=== PATIENT | male | born 1980 | race Caucasian/White ===

== ENCOUNTER → 2017-07-02 06:57 | Outpatient (CLI) | payer BC, SELFPAY ==
[2017-07-02 07:32] LABS: Basophils % 0.4 % (0.1-2.0); Eosinophils # 0.1 K/mm3 (0.0-0.4); Eosinophils % 0.9 % (0.1-12.0); Hematocrit 43.1 % (42.0-52.0); Hemoglobin 14.9 g/dL (14.1-18.0); Lymphocytes # 1.9 K/mm3 (0.7-4.5); Mean Corpuscular HGB Conc 34.5 g/dL (31.8-35.4); Mean Corpuscular Hemoglobin 30.7 pg (27.0-31.2); Mean Platelet Volume 7.6 fl (7.4-10.4); Monocytes # 0.3 K/mm3 (0.1-1.0); Monocytes % 3.8 % (1.7-9.3); Neutrophils # 5.3 K/mm3 (1.8-7.8); Neutrophils % 69.8 % (37.0-80.0); Platelet Count 293 K/mm3 (142-424); Red Blood Count 4.85 M/mm3 (4.60-6.20); White Blood Count 7.5 K/mm3 (4.8-10.8)
[2017-07-03 17:16] LABS: Testosterone,Total 278 ng/dL (264-916)
[2017-07-05 06:29] LABS: Vitamin D 25 Hydroxy 12.2 ng/mL (30.0-100.0)
== END ==
PROVIDERS: PCP Internal Medicine Adolescent Medicine; Visit Provider Internal Medicine Adolescent Medicine
DX: E55.9 Vitamin D deficiency, unspecified (principal); E29.1 Testicular hypofunction
CPT/HCPCS: 36415; 82652; 84403; 85025

== ENCOUNTER → 2018-01-16 12:13 | Outpatient (CLI) | payer BC, SELFPAY ==
[2018-01-16 12:17] LABS: Microscopic, Urine URINE MICROSCOPIC (MICROSCOPIC)
--- NOTE | 2018-01-16 12:34 | CT_ITS ---
CT abdomen pelvis wo/w con CLINICAL INDICATION: ITS.REASON: LT LATERAL ABD PAIN..FEVER..CHILLS ORDERING PHYSICIAN: Tiffany Jade PATIENT AGE: 37 years COMPARISON: None TECHNIQUE: Axial images obtained with sagittal and coronal reformats. All CT scans at the facility use one or more dose reduction, viz: automated exposure control, ma/kV adjustment per patient size (including targeted exams where dose is matched to indication, i.e. head), or iterative reconstruction technique. PROCEDURE: Oral Contrast: None IV Contrast: 75 mL's of Isovue-370. FINDINGS: Lung bases are clear. There is mild diffuse fatty liver involvement. No focal liver lesion is evident. There has been prior cholecystectomy. No biliary dilatation. The spleen, adrenal glands, and pancreas have an unremarkable appearance. No renal or ureteral calculi or hydronephrosis. Unremarkable appendix. There is diverticulosis of the descending and sigmoid colon. There is mild stranding of the pericolic fat in the left mid abdominal region adjacent to a diverticulum consistent with acute diverticulitis. There is mild thickening of the left paracolic gutter. No abscess or perforation is evident. No pelvic fluid collections or mass apparent. No acute bony anomalies. IMPRESSION: Acute noncomplicated diverticulitis of the descending colon
[2018-01-16 12:40] LABS: Basophils % 0.3 % (0.1-2.0); Eosinophils # 0.1 K/mm3 (0.0-0.4); Eosinophils % 0.5 % (0.1-12.0); Hematocrit 48.6 % (42.0-52.0); Hemoglobin 16.3 g/dL (14.1-18.0); Lymphocytes # 1.8 K/mm3 (0.7-4.5); Lymphocytes % 14.8 K/mm3 (10-50); Mean Corpuscular HGB Conc 33.5 g/dL (31.8-35.4); Mean Corpuscular Hemoglobin 30.4 pg (27.0-31.2); Mean Corpuscular Volume 90.8 fl (80-94); Mean Platelet Volume 7.8 fl (7.4-10.4); Monocytes # 0.7 K/mm3 (0.1-1.0); Monocytes % 5.5 % (1.7-9.3); Neutrophils # 9.4 K/mm3 (1.8-7.8); Neutrophils % 78.9 % (37.0-80.0); Platelet Count 288 K/mm3 (142-424); Red Blood Count 5.36 M/mm3 (4.60-6.20); Red Cell Distribution Width 13.9 % (11.5-17.5); White Blood Count 11.9 K/mm3 (4.8-10.8)
[2018-01-16 12:42] LABS: Appearance,Urine CLEAR (Clear); Bilirubin,Urine Negative (Negative); Blood, Urine TRACE-I (Negative); Color,Urine YELLOW (Yellow); Glucose,Urine (UA) 3+ (Negative); Ketones,Urine Negative (Negative); Leukocyte Esterase,Urine Negative (Negative); Nitrate,Urine Negative (Negative); Protein,Urine Negative (Negative); Specific Gravity, Urine >= 1.030 (1.005-1.030); Urobilinogen,Urine 0.2 EU/dl (0.2)
[2018-01-16 13:02] LABS: Bacteria,Urine 1+ /lpf; Mucus,Urine 1+ /lpf; Squamous Epithelial Cell,Urine Occasional #/hpf (0-5); WBC,Urine Occasional #/hpf (0-3)
[2018-01-16 13:45] LABS: Alanine Aminotransferase 53 U/L (12-78); Albumin Level 3.7 gm/dL (3.4-5.0); Alkaline Phosphatase 89 U/L (46-116); Amylase 50 U/L (25-125); Anion Gap 13.3 mEq/L (5-15); Aspartate Amino Transferase 14 U/L (15-37); Bilirubin,Total 0.9 mg/dL (0.2-1.0); Blood Urea Nitrogen 10 mg/dL (7-18); Carbon Dioxide 25 mmol/L (21.0-32.0); Chloride 105 mmol/L (98-107); Creatinine,Serum 0.92 mg/dL (0.70-1.30); Estimated Glomerular Filt Rate 92 ml/min (>60); GFR (African American) 111 ML/MIN (>60); Globulin 3.8 gm/dl (1.3-3.2); Glucose 153 mg/dL (74-106); Lipase 165 u/L (73-393); Potassium 4.3 mmoL/L (3.5-5.1); Sodium 139 mmol/L (136-145); Total Protein,Serum 7.5 gm/dL (6.4-8.2)
== END ==
PROVIDERS: PCP Internal Medicine Adolescent Medicine; Visit Provider Nurse Practitioner Family
DX: R50.9 Fever, unspecified (principal); R10.9 Unspecified abdominal pain
CPT/HCPCS: 36415; 74170; 74178; 80053; 81001; 82150; 83690; 85025; Q9967

== ENCOUNTER → 2018-01-26 16:37 | Outpatient (CLI) | payer BC, SELFPAY | PROVIDERS: PCP Nurse Practitioner Family; Visit Provider Nurse Practitioner Family | DX: R00.2 Palpitations (principal) | CPT/HCPCS: 93005; 93225; 93226 ==

== ENCOUNTER → 2019-10-13 07:12 | Outpatient (CLI) | payer BC, SELFPAY ==
[2019-10-13 10:44] LABS: Hemoglobin A1C 5.5 % (4.0-6.0)
[2019-10-13 10:56] LABS: Basophils # 0.1 K/mm3 (0-0.2); Basophils % 0.9 % (0.1-2.0); Eosinophils # 0.1 K/mm3 (0.0-0.4); Eosinophils % 1.7 % (0.1-12.0); Hematocrit 50.4 % (42.0-52.0); Hemoglobin 16.9 g/dL (14.1-18.0); Mean Corpuscular HGB Conc 33.6 g/dL (31.8-35.4); Mean Corpuscular Hemoglobin 31.2 pg (27.0-31.2); Mean Corpuscular Volume 92.9 fl (80-94); Mean Platelet Volume 8.7 fl (7.4-10.4); Monocytes # 0.4 K/mm3 (0.1-1.0); Neutrophils # 4.7 K/mm3 (1.8-7.8); Neutrophils % 64.4 % (37.0-80.0); Platelet Count 294 K/mm3 (142-424); Red Blood Count 5.42 M/mm3 (4.60-6.20); Red Cell Distribution Width 13.9 % (11.5-17.5); White Blood Count 7.2 K/mm3 (4.8-10.8)
[2019-10-13 11:06] LABS: Alanine Aminotransferase 52 U/L (12-78); Albumin Level 4.6 g/dl (3.5-5.0); Albumin/Globulin Ratio 1.4 (1.1-1.8); Alkaline Phosphatase 74 U/L (38-126); Anion Gap 12.8 mEq/L (5-15); Aspartate Amino Transferase 37 U/L (17-59); Bilirubin,Total 1.1 mg/dl (0.2-1.3); Blood Urea Nitrogen 18 mg/dl (9-20); Calcium 9.7 mg/dl (8.4-10.2); Carbon Dioxide 32 mmol/L (22.0-30.0); Chloride 98 mmol/L (98-107); Chol/HDL Ratio 4.1 (1-3.5); Cholesterol 147 mg/dl (140-200); Estimated Glomerular Filt Rate 83 ml/min (>60); GFR (African American) 100 ML/MIN (>60); Globulin 3.3 g/dL (1.3-3.2); Glucose 110 mg/dl (74-100); HDL Cholesterol 36 mg/dl (40-60); Potassium 4.8 mmoL/L (3.5-5.1); Sodium 138 mmol/L (136-145); Total Protein,Serum 7.9 g/dl (6.3-8.2); Triglycerides 154 mg/dl (30-150); VLDL Cholesterol 31 mg/dL (0-40)
[2019-10-13 11:17] LABS: Direct LDL Cholesterol 107.69 mg/dL (100-129)
[2019-10-15 08:25] LABS: Vitamin D 25 Hydroxy 21.3 ng/mL (30.0-100.0)
[2019-10-19 11:17] LABS: Testosterone, Total, LC/MS 295.8 ng/dL (264.0-916.0); Testosterone,Free 6.9 pg/mL (6.8-21.5)
== END ==
PROVIDERS: Visit Provider Internal Medicine Adolescent Medicine
DX: I10 Essential (primary) hypertension; E29.1 Testicular hypofunction; Z68.38 Body mass index [BMI] 38.0-38.9, adult; E55.9 Vitamin D deficiency, unspecified
CPT/HCPCS: 36415; 80053; 80061; 82652; 83036; 84402; 84403; 85025

== ENCOUNTER → 2020-08-28 17:08 | Outpatient (CLI) | payer BC, SELFPAY | PROVIDERS: PCP Internal Medicine Adolescent Medicine; Visit Provider Internal Medicine Adolescent Medicine | DX: R00.2 Palpitations (principal) | CPT/HCPCS: 93225; 93226 ==

== ENCOUNTER → 2020-10-09 15:45 | Outpatient (CLI) | payer BC, SELFPAY ==
[2020-10-09 16:08] LABS: Basophils # 0.1 K/mm3 (0-0.2); Basophils % 0.7 % (0.1-2.0); Eosinophils # 0.1 K/mm3 (0.0-0.4); Eosinophils % 1.3 % (0.1-12.0); Hematocrit 49.3 % (42.0-52.0); Hemoglobin 16.2 g/dL (14.1-18.0); Lymphocytes # 2.2 K/mm3 (0.7-4.5); Lymphocytes % 28.5 % (10-50); Mean Corpuscular Hemoglobin 30.6 pg (27.0-31.2); Mean Corpuscular Volume 92.9 fl (80-94); Monocytes # 0.4 K/mm3 (0.1-1.0); Monocytes % 4.9 % (1.7-9.3); Neutrophils % 64.7 % (37.0-80.0); Platelet Count 280 K/mm3 (142-424); Red Cell Distribution Width 13.2 % (11.5-17.5); White Blood Count 7.8 K/mm3 (4.8-10.8)
[2020-10-09 17:07] LABS: Chloride 103 mmol/L (98-107)
[2020-10-09 17:08] LABS: Potassium 4.5 mmoL/L (3.5-5.1); Sodium 139 mmol/L (136-145)
[2020-10-09 17:10] LABS: Alanine Aminotransferase 49 U/L (12-78); Alkaline Phosphatase 84 U/L (38-126); Amylase 73 U/L (30-110); Anion Gap 12.5 mEq/L (5-15); Aspartate Amino Transferase 32 U/L (17-59); Bilirubin,Total 0.7 mg/dl (0.2-1.3); Blood Urea Nitrogen 11 mg/dl (9-20); Carbon Dioxide 28 mmol/L (22.0-30.0); Estimated Glomerular Filt Rate 107 ml/min (>60); GFR (African American) 129 ML/MIN (>60)
[2020-10-09 17:11] LABS: Albumin Level 4.4 g/dl (3.5-5.0); Albumin/Globulin Ratio 1.5 (1.1-1.8); Calcium 9.6 mg/dl (8.4-10.2); Glucose 122 mg/dl (74-100); Lipase 140 U/L (23-300); Total Protein,Serum 7.4 g/dl (6.3-8.2)
[2020-10-09 18:19] LABS: Vitamin B12 397 pg/mL (239-931)
== END ==
PROVIDERS: Visit Provider Nurse Practitioner Family
DX: R07.9 Chest pain, unspecified (principal); R42 Dizziness and giddiness; R11.10 Vomiting, unspecified; R19.7 Diarrhea, unspecified
CPT/HCPCS: 36415; 80053; 82150; 82607; 83690; 84443; 85025

== ENCOUNTER → 2021-05-18 13:19 | Outpatient (CLI) | payer BC, SELFPAY ==
--- NOTE | 2021-05-18 13:31 | XR_ITS ---
FINAL REPORT CLINICAL HISTORY: COVID TESTING FINDINGS: The heart size is normal. The mediastinum is normal. There is no focal infiltrate or edema. There are no pleural effusions. There is no pneumothorax. There is no osseous abnormality. IMPRESSION: No acute cardiopulmonary process Reviewed, Interpreted and Dictated by Bijan Weathers III, MD Transcribed by Nguyễn Beaver Authenticated by Bijan Weathers III, MD on 05/18/2021 02:17:37 PM [facility]
[2021-05-18 14:15] LABS: Alanine Aminotransferase 97 U/L (12-78); Albumin Level 4.2 g/dl (3.5-5.0); Albumin/Globulin Ratio 1.3 (1.1-1.8); Alkaline Phosphatase 100 U/L (38-126); Anion Gap 12.2 mEq/L (5-15); Aspartate Amino Transferase 51 U/L (17-59); Bilirubin,Total 0.7 mg/dl (0.2-1.3); Blood Urea Nitrogen 24 mg/dl (9-20); Carbon Dioxide 32 mmol/L (22.0-30.0); Chloride 98 mmol/L (98-107); Estimated Glomerular Filt Rate 93 ml/min (>60); GFR (African American) 113 ML/MIN (>60); Globulin 3.3 g/dL (1.3-3.2); Glucose 120 mg/dl (74-100); Potassium 4.2 mmoL/L (3.5-5.1); Sodium 138 mmol/L (136-145); Total Protein,Serum 7.5 g/dl (6.3-8.2)
[2021-05-18 14:20] LABS: D-Dimer 0.66 ug/mL (0.0-0.5)
[2021-05-18 14:25] LABS: Basophils # 0.1 K/mm3 (0-0.2); Basophils % 0.7 % (0.1-2.0); Eosinophils % 0.2 % (0.1-12.0); Hematocrit 49.5 % (42.0-52.0); Lymphocytes # 2.4 K/mm3 (0.7-4.5); Lymphocytes % 12.6 % (10-50); Mean Corpuscular HGB Conc 32.3 g/dL (31.8-35.4); Mean Corpuscular Hemoglobin 30.9 pg (27.0-31.2); Mean Corpuscular Volume 95.4 fl (80-94); Mean Platelet Volume 8.1 fl (7.4-10.4); Monocytes # 0.9 K/mm3 (0.1-1.0); Monocytes % 4.7 % (1.7-9.3); Neutrophils # 15.6 K/mm3 (1.8-7.8); Neutrophils % 81.8 % (37.0-80.0); Platelet Count 804 K/mm3 (142-424); Red Blood Count 5.19 M/mm3 (4.60-6.20)
[2021-05-18 14:32] LABS: MANUAL DIFFERENTIAL MANUAL DIFFERENTIAL (MANUAL DIFF)
[2021-05-18 16:29] LABS: Lymphocytes % 8 % (10-50); Monocytes % 2 % (2-9); Neutrophils % 90 % (42-76); Total Cells Counted 100
[2021-05-18 16:30] LABS: Platelet Estimate Marked Increase; RBC Morphology Normal
== END ==
PROVIDERS: PCP Nurse Practitioner Family; Visit Provider Nurse Practitioner Family
DX: U07.1 COVID-19 (principal); R06.00 Dyspnea, unspecified
CPT/HCPCS: 36415; 71045; 80053; 85007; 85025; 85378

== ENCOUNTER → 2021-05-19 11:26 | Outpatient (CLI) | payer BC, SELFPAY ==
--- NOTE | 2021-05-19 11:36 | CT_ITS ---
FINAL REPORT CLINICAL HISTORY: ELEVATED D DIMER FINDINGS: Axial CT images of the chest were obtained with contrast. Coronal reformatted images were also obtained. This study was performed with techniques to keep radiation doses as low as reasonably achievable, (ALARA). Individualized dose reduction techniques using automated exposure control or adjustment of mA and/or KV according to the patient's size were employed. There is no evidence of mediastinal or hilar mass or adenopathy. No axillary mass or adenopathy is identified. There is no pulmonary embolism. On lung window images there is mild scarring and mild changes of emphysema. There are predominant peripheral opacities of uncertain etiology. Limited images of the upper abdomen reveal prior cholecystectomy. The liver is fatty infiltrated. IMPRESSION: No pulmonary embolism. Predominately peripheral opacity is of uncertain etiology may represent mycobacterial/fungal disease or atypical pneumonia. Reviewed, Interpreted and Dictated by Bijan Weathers III, MD Transcribed by Nguyễn Beaver Authenticated by Bijan Weathers III, MD on 05/19/2021 12:54:[address] [facility]
== END ==
PROVIDERS: PCP Nurse Practitioner Family; Visit Provider Nurse Practitioner Family
DX: R79.89 Other specified abnormal findings of blood chemistry (principal)
CPT/HCPCS: 71275; Q9967

== ENCOUNTER → 2021-07-14 07:59 | Outpatient (CLI) | payer BC, SELFPAY ==
--- NOTE | 2021-07-14 08:07 | US_ITS ---
FINAL REPORT CLINICAL HISTORY: ELEVATED LIVER ENZYMES FINDINGS: Sonographic images of the right upper quadrant were obtained. The pancreas is partially obscured. The liver has increased echogenicity consistent with fatty infiltration. The gallbladder is surgically absent. There is no evidence of biliary ductal dilatation.The common duct measures 3 mm. Limited images of the right kidney are unremarkable. IMPRESSION: Fatty infiltrated liver. Cholecystectomy. Reviewed, Interpreted and Dictated by Bijan Weathers III, MD Transcribed by Kath Hendricks Authenticated by Bijan Weathers III, MD on 07/14/2021 12:33:[address] [facility]
== END ==
PROVIDERS: PCP Nurse Practitioner Family; Visit Provider Nurse Practitioner Family
DX: R74.8 Abnormal levels of other serum enzymes (principal)
CPT/HCPCS: 76705

== ENCOUNTER → 2021-08-24 15:29 | Outpatient (CLI) | payer BC, SELFPAY ==
--- NOTE | 2021-08-24 | CA_ITS ---
APPROVED REPORT Exam: Exercise Treadmill Technologist: Chani Vazquez, Ht: 6 ft 1 in Wt: 293 lbs BSA: 2.53 m2 HR: 98 bpm BP: 142/102 mmHg Medical History Medications: Famotidine,,,,, Saxenda,,,,, Stress Test Details Test: Cesar HR Resting HR: 99 bpm Max Heart Rate (APMHR): 178.551737 bpm Max HR Achieved: 155 bpm Target HR (85% APMHR): 151.886486 bpm % of APMHR: 87.08 Recovery HR: 112 bpm BP Resting BP: 138/92 mmHg Max BP: 188/100 mmHg Recovery BP: 153.0/91.0 mmHg ECG Clinical Exercise duration: 08:24 min Highest Stage Achieved: III Exercise capacity: 10.1 METs Stress ECG Conclusion Max HR: 155 Test stopped due to: SOA Symptoms: SOA with exercise. Chest tightness with peak exercise Arrhythmias/Ectopy: None ST-T Changes: Conclusion: Test Summary REST . . . . . . . Sitting REST . . . . . . . Standing REST 02:50 0.0 0.0 99 . 138/ 92 . . Stage 1 01:00 10.0 1.7 114 . . . . Stage 1 02:00 10.0 1.7 120 . . . . Stage 1 03:00 10.0 1.7 120 . 130/ 90 . . Stage 2 01:00 12.0 2.5 126 . . . . Stage 2 02:00 12.0 2.5 130 . . . . Stage 2 03:00 12.0 2.5 132 . 150/ 92 . . Stage 3 01:00 14.0 3.4 142 . . . . Stage 3 02:00 14.0 3.4 150 . . . . Stage 3 02:24 14.0 3.4 155 . . . Stop exercise at 08:24 RECOVERY 01:00 0.0 0.0 137 . 188/100 . . RECOVERY 02:00 0.0 0.0 121 . 188/100 . . RECOVERY 03:00 0.0 0.0 115 . 171/ 85 . . RECOVERY 04:00 0.0 0.0 114 . 171/ 85 . . RECOVERY 04:46 0.0 0.0 113 . 153/ 91 . . Electronically signed by : Matias Salcido MD 08/26/2021 10:13:56
== END ==
PROVIDERS: PCP Nurse Practitioner Family; Visit Provider Internal Medicine Adolescent Medicine
DX: R07.9 Chest pain, unspecified (principal)
CPT/HCPCS: 93017

== ENCOUNTER → 2021-09-14 15:00 | Outpatient (CLI) | payer BC, SELFPAY ==
[2021-09-14 16:30] VITALS: PULSE 84; PULSE 88
== END ==
PROVIDERS: PCP Nurse Practitioner Family; Visit Provider Internal Medicine Adolescent Medicine
DX: R05.9 Cough, unspecified (principal)
CPT/HCPCS: 94060; 94640; 94727; 94729

== ENCOUNTER 2021-10-11 11:25 | Emergency (ER) | payer BC, SELFPAY ==
--- NOTE | 2021-10-11 11:33 | XR_ITS ---
PROCEDURE INFORMATION: Exam: XR Left Knee Exam date and time: 10/11/2021 11:40 AM Age: 41 years old Clinical indication: Swelling or effusion of joint; Knee; Additional info: Injury/pain- felt pop and can not weight bear at all- swollen joint TECHNIQUE: Imaging protocol: XR Left knee. Views: 3 views. COMPARISON: No relevant prior studies available. FINDINGS: Bones/joints: Normal. Soft tissues: Normal. IMPRESSION: No acute findings. If there is concern for ligamentous injury, follow-up with magnetic resonance imaging.
[2021-10-11 12:19] VITALS: BP 142/89; PULSE 91; RESP 17; TEMP 37; O2SAT 96; BMI 38.5
--- NOTE | 2021-10-11 12:25 | HMH.EDUTC ---
[facility] Disposition Clinical Impression: Knee sprain Qualifiers: Encounter type: initial encounter Involved ligament of knee: other ligament Laterality: unspecified laterality Qualified Code(s): S83.8X9A - Sprain of other specified parts of unspecified knee, initial encounter Disposition: Home, Self-Care Condition on Discharge: Good Instructions: How to Use Crutches, How To Perform RICE (Rest, Ice, Compress, Elevate), How to Use a Knee Immobilizer, Ketorolac Additional Instructions: *no weight bearing *RICE, Rest the extremity, Ice 15-20 minutes 3-4 times daily, Compress- wear the nettie wrap as discussed as much as possible to help reduce swelling and pain, Elevate the extremity when at rest *Knee immobilizer is for support and help control swelling, use it except in the shower. Be sure that is not to tight but not to loose either *Elevate when resting *Toradol as prescribed as needed for pain an inflammation. If need something more can take Tylenol in between doses of Toradol to help but do not take Ibuprofen with them Immediately follow up with your family doctor for new or worsening of symptoms, or no noticeable improvement over the next 3-5 days Call Orthopedic office for appointment either this week or on Tuesday with Dr Herrera for treatment and evaluation Prescriptions: Ketorolac Tromethamine [Toradol 10mg tablet] 10 mg PO Q6HP PRN #20 tab MDD 40mg/day PRN Reason: Moderate Pain Transmission Status: Pending to [id number] Referrals: Matias Salcido MD [Primary Care Provider] - As needed Devon Herrera JR, MD [Physician] - (call office for appointment) Forms: Work/School Release Time of Disposition: 13:11 Medical Decision Making - Jermaine Inquiry Pt receiving controlled substance: No Jermaine was queried for this patient: No Vital Signs: 10/11/21 12:19 Temperature 98.6 F Temperature Source Oral Pulse Rate [Left Radial] 91 H Respiratory Rate 17 Blood Pressure [Right Arm] 142/89 H Blood Pressure Mean [Right Arm] 106 02 Sat by Pulse Oximetry 96 Orders (Tests/Meds): ED MEDICATIONS Discontinued Medications Generic Name Dose Route Start Last Admin Trade Name Freq PRN Reason Stop Dose Admin Ketorolac Tromethamine 60 mg 10/11/21 12:35 10/11/21 12:56 Ketorolac 60mg/2ml Vial IM 10/11/21 12:36 60 mg ONCE ONE Administration Methylprednisolone Sodium Succinate 125 mg 10/11/21 12:35 10/11/21 12:56 Methylprednisolone Sod Succ 125mg Vial IM 10/11/21 12:36 125 mg ONCE ONE Administration - Radiology Data #1 Image(s): Knee Image Reviewed: Yes I have reviewed radiologist's interpretation IMPRESSION: No acute findings. If there is concern for ligamentous injury, follow-up with magnetic resonance imaging. - Physician Consults Physician Consulted: Dr Herrera Time: 12:42 Reason -: Orthopedic Eval/Care Comment/Response: Spoke with Dr Herrera and discussed xray reading, advised knee immobilizer, crutches and can follow up in the office this week with Jody or Dr Villagomez or see him on Tuesday [facility] HPI - General Stated complaint: lt knee pain Time Seen by Provider: 10/11/21 12:26 Source of Information: Patient Description of Symptoms (Recalled from Triage Doc. by RN): patient states that he stepped down stairs and heard a loud pop. patient hurt his left knee, patient also states that he hurts in his lower back, hip. HEENT Symptoms (Recalled from RN notes): No Resp Symptoms (Recalled from RN notes): No Skin Symptoms (Recalled from RN notes): No MS Symptoms (Recalled from RN notes): Yes Functional Status (Recalled from RN notes): wnl - History of Present Illness Provider Complaint: Patient states that he has a history of sciatica States that earlier in the week he was having flare up and was having some pain in his buttock area and into his upper leg State that he had been favoring that leg then this morning as he was walking down the steps he felt a pop in his left k
[2021-10-11 13:25] VITALS: BP 142/89; PULSE 91; RESP 17; TEMP 37
== END 2021-10-11 13:26 | disposition home or self-care (01) ==
PROVIDERS: Emergency Provider Nurse Practitioner; PCP Internal Medicine Adolescent Medicine
DX: S83.8X2A Sprain of other specified parts of left knee, initial encounter (principal); W10.9XXA Fall (on) (from) unspecified stairs and steps, initial encounter; Y92.9 Unspecified place or not applicable
CPT/HCPCS: 73562; 99212; G0463

== ENCOUNTER → 2021-10-19 14:14 | Outpatient (CLI) | payer BC, SELFPAY ==
--- NOTE | 2021-10-19 14:24 | MR_ITS ---
FINAL REPORT CLINICAL HISTORY: knee pain/ rule out menicus tear. KNEE INSTABILTIY X1WK AGO. UNABLE TO BEND KNEE. MEDIAL AND LATERAL SIDED KNEE PAIN. FINDINGS: Multiplanar MR imaging of the right knee was performed without contrast. There is a high-grade partial tear of the posterior root of the medial meniscus. The lateral meniscus is intact. The anterior and posterior cruciate ligaments are intact. The medial collateral ligament and lateral ligamentous complex are intact. The patellar and quadriceps tendons are intact. There is no evidence of fracture. No focal abnormality is identified of the articular cartilage. A small joint effusion is seen. The musculature is intact. No soft tissue mass or cyst is identified. IMPRESSION: High-grade partial tear of the posterior root of the medial meniscus. Small joint effusion. Reviewed, Interpreted and Dictated by Bijan Weathers III, MD Transcribed by Nguyễn Beaver Authenticated and [facility]
== END ==
LOC: RAD 14:15
PROVIDERS: PCP Internal Medicine Adolescent Medicine; Visit Provider Orthopaedic Surgery
DX: M25.562 Pain in left knee (principal); S89.92XD Unspecified injury of left lower leg, subsequent encounter
CPT/HCPCS: 73721

== ENCOUNTER → 2021-11-05 11:12 | Outpatient (CLI) | payer BC, SELFPAY ==
[2021-11-05 12:09] LABS: Basophils % 0.2 % (0.1-2.0); Eosinophils % 0.2 % (0.1-12.0); Hematocrit 45.2 % (42.0-52.0); Hemoglobin 16.1 g/dL (14.1-18.0); Lymphocytes # 1.6 K/mm3 (0.7-4.5); Lymphocytes % 10.7 % (10-50); Mean Corpuscular HGB Conc 35.8 g/dL (31.8-35.4); Mean Corpuscular Hemoglobin 32.1 pg (27.0-31.2); Mean Corpuscular Volume 89.7 fl (80-94); Monocytes # 0.6 K/mm3 (0.1-1.0); Monocytes % 3.8 % (1.7-9.3); Neutrophils # 12.6 K/mm3 (1.8-7.8); Neutrophils % 85.1 % (37.0-80.0); Platelet Count 327 K/mm3 (142-424); Red Blood Count 5.04 M/mm3 (4.60-6.20); Red Cell Distribution Width 13.8 % (11.5-17.5); White Blood Count 14.8 K/mm3 (4.8-10.8)
[2021-11-05 12:14] LABS: MANUAL DIFFERENTIAL MANUAL DIFFERENTIAL (MANUAL DIFF)
[2021-11-05 12:36] LABS: Chloride 101 mmol/L (98-107)
[2021-11-05 12:37] LABS: Potassium 4.9 mmoL/L (3.5-5.1); Sodium 140 mmol/L (136-145)
[2021-11-05 12:39] LABS: Alanine Aminotransferase 53 U/L (12-78); Alkaline Phosphatase 103 U/L (38-126); Anion Gap 15.9 mEq/L (5-15); Aspartate Amino Transferase 37 U/L (17-59); Bilirubin,Total 0.7 mg/dl (0.2-1.3); Blood Urea Nitrogen 17 mg/dl (9-20); Carbon Dioxide 28 mmol/L (22.0-30.0); Estimated Glomerular Filt Rate 93 ml/min (>60); GFR (African American) 112 ML/MIN (>60)
[2021-11-05 12:40] LABS: Albumin Level 4.6 g/dl (3.5-5.0); Albumin/Globulin Ratio 1.5 (1.1-1.8); Glucose 228 mg/dl (74-100); Total Protein,Serum 7.6 g/dl (6.3-8.2)
[2021-11-05 12:57] LABS: Lymphocytes % 20 % (10-50); Monocytes % 5 % (2-9); Neutrophils % 75 % (42-76); Total Cells Counted 100
[2021-11-05 12:58] LABS: Tear Drop Cells 2+
[2021-11-05 12:59] LABS: Platelet Estimate Normal
== END ==
PROVIDERS: PCP Internal Medicine Adolescent Medicine; Visit Provider Orthopaedic Surgery
DX: S83.92XA Sprain of unspecified site of left knee, initial encounter (principal)
CPT/HCPCS: 36415; 80053; 85007; 85025

== ENCOUNTER → 2021-11-10 07:04 | Outpatient (CLI) | payer BC, SELFPAY ==
--- NOTE | 2021-11-10 07:17 | ECG_ITS ---
APPROVED REPORT Exam: Resting ECG HR:94 bpm ECG Measurements Heart Rate 94 AXES MS 164 P 58 QRSd 108 QRS 64 QT 349 T 45 QTc 401 Conclusion SINUS RHYTHM Isolated Q in III - unchanged from 2017 ABNORMAL ECG UNCONFIRMED REPORT Electronically signed by : Matias Salcido MD 11/12/2021 17:50:14
[2021-11-10 16:23] LABS: Chloride 100 mmol/L (98-107); Potassium 4.5 mmoL/L (3.5-5.1); Sodium 138 mmol/L (136-145)
[2021-11-10 16:26] LABS: Alanine Aminotransferase 66 U/L (12-78); Albumin Level 4.5 g/dl (3.5-5.0); Albumin/Globulin Ratio 1.4 (1.1-1.8); Alkaline Phosphatase 71 U/L (38-126); Anion Gap 11.5 mEq/L (5-15); Aspartate Amino Transferase 44 U/L (17-59); Blood Urea Nitrogen 21 mg/dl (9-20); Calcium 9.5 mg/dl (8.4-10.2); Carbon Dioxide 31 mmol/L (22.0-30.0); Estimated Glomerular Filt Rate 73 ml/min (>60); GFR (African American) 89 ML/MIN (>60); Globulin 3.3 g/dL (1.3-3.2); Glucose 122 mg/dl (74-100); Total Protein,Serum 7.8 g/dl (6.3-8.2)
[2021-11-10 16:59] LABS: Basophils # 0.2 K/mm3 (0-0.2); Basophils % 1.9 % (0.1-2.0); Eosinophils # 0.1 K/mm3 (0.0-0.4); Eosinophils % 1.1 % (0.1-12.0); Hematocrit 49.8 % (42.0-52.0); Hemoglobin 15.6 g/dL (14.1-18.0); Lymphocytes # 2.2 K/mm3 (0.7-4.5); Lymphocytes % 22.4 % (10-50); Mean Corpuscular HGB Conc 31.2 g/dL (31.8-35.4); Mean Corpuscular Hemoglobin 29.6 pg (27.0-31.2); Mean Corpuscular Volume 94.7 fl (80-94); Mean Platelet Volume 8.5 fl (7.4-10.4); Monocytes # 0.4 K/mm3 (0.1-1.0); Monocytes % 4.2 % (1.7-9.3); Neutrophils % 70.2 % (37.0-80.0); Platelet Count 316 K/mm3 (142-424); Red Blood Count 5.26 M/mm3 (4.60-6.20); Red Cell Distribution Width 14.4 % (11.5-17.5); White Blood Count 9.9 K/mm3 (4.8-10.8)
== END ==
PROVIDERS: PCP Internal Medicine Adolescent Medicine; Visit Provider Orthopaedic Surgery
DX: Z01.812 Encounter for preprocedural laboratory examination (principal); Z20.822 Contact with and (suspected) exposure to COVID-19; M25.562 Pain in left knee; S89.92XD Unspecified injury of left lower leg, subsequent encounter; S83.242D Other tear of medial meniscus, current injury, left knee, subsequent encounter
CPT/HCPCS: 36415; 80053; 85025; 93005; C9803; U0003; U0005

== ENCOUNTER → 2021-11-10 15:33 | Outpatient (CLI) | payer BC, SELFPAY | PROVIDERS: PCP Internal Medicine Adolescent Medicine; Visit Provider Internal Medicine Adolescent Medicine | DX: D72.829 Elevated white blood cell count, unspecified (principal) ==

== ENCOUNTER → 2021-12-23 09:03 | Outpatient (CLI) | payer BC, SELFPAY ==
[2021-12-23 09:36] LABS: Basophils # 0.2 K/mm3 (0-0.2); Basophils % 2.2 % (0.1-2.0); Eosinophils # 0.1 K/mm3 (0.0-0.4); Eosinophils % 1.8 % (0.1-12.0); Hematocrit 50.3 % (42.0-52.0); Hemoglobin 16.4 g/dL (14.1-18.0); Lymphocytes # 2.2 K/mm3 (0.7-4.5); Lymphocytes % 29.2 % (10-50); Mean Corpuscular HGB Conc 32.6 g/dL (31.8-35.4); Mean Corpuscular Hemoglobin 31.8 pg (27.0-31.2); Mean Corpuscular Volume 97.6 fl (80-94); Mean Platelet Volume 8.9 fl (7.4-10.4); Monocytes # 0.3 K/mm3 (0.1-1.0); Monocytes % 3.8 % (1.7-9.3); Neutrophils # 4.8 K/mm3 (1.8-7.8); Platelet Count 267 K/mm3 (142-424); Red Blood Count 5.15 M/mm3 (4.60-6.20); Red Cell Distribution Width 14.6 % (11.5-17.5); White Blood Count 7.6 K/mm3 (4.8-10.8)
== END ==
PROVIDERS: PCP Internal Medicine Adolescent Medicine; Visit Provider Orthopaedic Surgery
DX: S83.242D Other tear of medial meniscus, current injury, left knee, subsequent encounter (principal)
CPT/HCPCS: 36415; 85025

== ENCOUNTER → 2022-01-12 12:04 | Outpatient (CLI) | payer BC, SELFPAY ==
[2022-01-12 12:12] LABS: Microscopic, Urine URINE MICROSCOPIC (MICROSCOPIC)
[2022-01-12 12:31] LABS: Basophils # 0.1 K/mm3 (0-0.2); Basophils % 1.2 % (0.1-2.0); Eosinophils # 0.1 K/mm3 (0.0-0.4); Eosinophils % 1.4 % (0.1-12.0); Hematocrit 51.1 % (42.0-52.0); Hemoglobin 16.7 g/dL (14.1-18.0); Lymphocytes # 2.2 K/mm3 (0.7-4.5); Lymphocytes % 27.4 % (10-50); Mean Corpuscular HGB Conc 32.6 g/dL (31.8-35.4); Mean Corpuscular Hemoglobin 31.1 pg (27.0-31.2); Mean Corpuscular Volume 95.4 fl (80-94); Mean Platelet Volume 8.6 fl (7.4-10.4); Monocytes # 0.4 K/mm3 (0.1-1.0); Monocytes % 4.4 % (1.7-9.3); Neutrophils # 5.2 K/mm3 (1.8-7.8); Neutrophils % 65.6 % (37.0-80.0); Platelet Count 325 K/mm3 (142-424); Red Blood Count 5.35 M/mm3 (4.60-6.20); White Blood Count 7.9 K/mm3 (4.8-10.8)
[2022-01-12 12:59] LABS: Erythrocyte Sedimentation Rate 11 mm/hr (0-15)
[2022-01-12 13:03] LABS: Appearance,Urine CLEAR (Clear); Bilirubin,Urine Negative (Negative); Blood, Urine TRACE-I (Negative); Color,Urine YELLOW (Yellow); Glucose,Urine (UA) Negative (Negative); Ketones,Urine Negative (Negative); Leukocyte Esterase,Urine Negative (Negative); Nitrate,Urine Negative (Negative); PH,Urine 5.5 (5.0-8.5); Protein,Urine Negative (Negative); Specific Gravity, Urine >= 1.030 (1.005-1.030); Urobilinogen,Urine 0.2 EU/dl (0.2)
[2022-01-12 13:12] LABS: C-Reactive Protein 3.2 mg/L (0-4)
[2022-01-12 13:16] LABS: RBC,Urine Occasional #/hpf (0-3); Squamous Epithelial Cell,Urine Occasional #/hpf (0-5)
== END ==
PROVIDERS: PCP Internal Medicine Adolescent Medicine; Visit Provider Orthopaedic Surgery
DX: Z01.812 Encounter for preprocedural laboratory examination (principal); Z20.822 Contact with and (suspected) exposure to COVID-19; S83.8X9A Sprain of other specified parts of unspecified knee, initial encounter
CPT/HCPCS: 36415; 81001; 85025; 85651; 86140; C9803; U0003; U0005

== ENCOUNTER 2022-01-14 07:59 | Day surgery (SDC) | payer BC, SELFPAY ==
[2022-01-12 13:36] VITALS: BMI 38.7
[2022-01-14] VITALS (15 sets, daily range): BP systolic 122–156; BP diastolic 77–102; PULSE 95–105; RESP 16–20; TEMP 36.1–43; O2SAT 92–98
--- NOTE | 2022-01-14 09:08 | P.PN_ITS ---
PFSH PFSH Medical History Asthma HTN (hypertension) Surgical History Hx laparoscopic cholecystectomy Family History Other Family history of COPD (chronic obstructive pulmonary disease) Family history of CVA Family history of cancer Family history of myocardial infarction Social History Smoking Status: Former smoker alcohol intake: never substance use type: denies use current occupational status: employed Travel in the last 8 weeks: None household members: spouse housing: house current occupation: [employer] caffeine: Yes [facility] Anesthesia Checklist Patient Identification Patient Identification: Arm Band Structural Data Admitted From: Home Planned Operative Procedure/s: Left Knee Arthroscopy, Partial Medial Meniscectomy Consent for Planned Operative Procedure(s) Verified: Yes Verified Documents: Surgical Consent and History and Physical NPO Status Verified Time NPO: 00:00 Additional verifications Anesthesia Reactions: No Hx Blood Transfusions: No Blood Transfusion Reaction: No Airway Assessment C-Spine Mobility Assessed: Yes TMJ Mobility Assessed: Yes Dentition: Good Dentition (Temporary crown on back left upper. Discussed risks of dental damage with lma insertion/intubation) Neurological Assessment Level of Consciousness: Awake and Alert Anesthesia Plan Anesthesia Risk discussed: Yes Anesthesia Plan: Verified ASA Class: II Anesthesia Type: General
--- NOTE | 2022-01-14 11:59 | SUR.OPER ---
1159- updated at this time
--- NOTE | 2022-01-14 12:25 | EXP.ANES.I ---
[facility] Anesthesia Record Part I Anesthesia Record I Intake, IV Amount: 100 Estimated blood loss (mL): 20 Urine output (mL): 0 Blood Products used (#): none Blood Pressure: 142/95 SaO2: 96 Pulse Rate: 102 Respiratory Rate: 20 Temperature: 98.2 F Patient is:: Drowsy and Stable Stable to PACU at:: 12:20
--- NOTE | 2022-01-14 13:06 | SUR.PHASEI ---
1259- detailed report given to markus obregon in postop 1301- pt left in stable condition with markus obregon in post op at this time
--- NOTE | 2022-01-14 14:54 | EXP.OP.NOTE ---
Date of procedure: 01/14/22 Pre-op Diagnosis:: 1. Medial meniscus tear, left knee 2. Osteoarthritis, left knee Post-op Diagnosis:: 1. Medial meniscal tear, left knee 2. Osteoarthritis, left knee 3. Pathological medial plica, left knee Procedure performed:: 1. Examination of left knee under anesthesia 2. Partial medial meniscectomy, left knee 3. Chondroplasty, left knee 4. Resection of medial plica, left knee Surgeon:: Joseph Villagomez MD DATA ANALYTICS DEVELOPER:: Other Anesthesia: LMA Estimated blood loss (mL): 2 Clinical Note:: The patient is a 41-year-old male with chronic left knee pain following an injury 3 months ago which is unresponsive to conservative management and evidence of a medial meniscal tear and early arthritic changes on imaging. Clinically his symptoms are consistent with the above diagnosis. Resection of the torn medial meniscus, chondroplasty and debridement is indicated to relieve the pain and improve function of the knee. Please refer to my office note for full details. Operative findings:: Examination of the left knee under anesthesia, showed a stable knee joint. ?There is a small amount of knee joint effusion.? Knee range of motion is from 0-130? of flexion.? Arthroscopic findings include diffuse grade 2 degenerative changes over the patellar articular surface and over the medial femoral condyle. The lateral compartment is well preserved.? The medial meniscus had a chronic tear involving the posterior meniscal root along with myxoid degeneration of the posterior horn. The lateral meniscus was noted to be intact.? The anterior cruciate ligament and posterior cruciate ligaments were intact. ?Mild synovitis was noted. Operative note:: On the day of the procedure the patient and his sister were met in the preoperative area and positively identified. A physical examination was performed and documented. The limb was marked and initialed by me. I have again discussed the diagnosis, management options including both nonsurgical and surgical. I have discussed the proposed surgical procedure, risks and benefits and alternatives in detail. The complications discussed include but are not limited to infection, injury to nerves and blood vessels, injury to the ligaments and tendons, knee stiffness, arthrofibrosis, incomplete relief, incomplete functional recovery, DVT, PE, CRPS, complications related to anesthesia including heart attack, stroke and even . I have also discussed about the likely need for further surgery in future. I told him that there were no guarantees with surgery; he could be no better or even worse. We also discussed the postoperative recovery and rehabilitation that might be needed. I believe the patient to be well informed with regard to the proposed surgery. I told him that it would take few months for full recovery of the knee after surgery. ?He expressed a full understanding and wished to proceed with the planned surgery. Patient understood the risks, agreed to proceed with surgery, signed the consent form and no guarantees or assurances were given or implied. Patient was brought to the operating room and placed supine on the operating table. All the bony prominences were appropriately padded. A general anesthesia was administered by the research pharmacist. A well-padded tourniquet cuff was placed over the left upper thigh. Examination of the left knee under anesthesia was performed. A small amount of knee effusion was noted. Knee range of motion was 0-130 degrees of flexion. Knee joint is noted to be ligamentously stable. The left knee was then prepped and draped in the usual sterile fashion. A preprocedure timeout was performed as per protocol. Administration of prophylactic IV antibiotics was confirmed with the anesthetic team. The arthroscopic portals were marked on the skin. The limb was exsanguinated with Esmarch bandage, and the tourniquet was inflated to 350 mmHg- see the nursing notes for tourniquet time. ?I then made an anterolateral arthrosc
== END 2022-01-14 13:45 | disposition home or self-care (01) ==
PROVIDERS: PCP Internal Medicine Adolescent Medicine; Visit Provider Orthopaedic Surgery
PROC: (CPT 29870; principal; 2022-01-14 10:00)
DX: S83.242A Other tear of medial meniscus, current injury, left knee, initial encounter (principal); I10 Essential (primary) hypertension; W10.8XXA Fall (on) (from) other stairs and steps, initial encounter; M17.12 Unilateral primary osteoarthritis, left knee; M67.52 Plica syndrome, left knee
CPT/HCPCS: 29881; J2405

== ENCOUNTER → 2022-04-22 11:54 | Outpatient (CLI) | payer BC, SELFPAY ==
[2022-04-22 13:59] LABS: Hemoglobin A1C 6.5 % (4.0-6.0)
[2022-04-22 14:11] LABS: Basophils # 0.1 K/mm3 (0-0.2); Basophils % 1.1 % (0.1-2.0); Eosinophils # 0.1 K/mm3 (0.0-0.4); Eosinophils % 1.1 % (0.1-12.0); Hematocrit 48.1 % (42.0-52.0); Hemoglobin 16.3 g/dL (14.1-18.0); Lymphocytes # 2.2 K/mm3 (0.7-4.5); Lymphocytes % 26.1 % (10-50); Mean Corpuscular HGB Conc 33.8 g/dL (31.8-35.4); Mean Corpuscular Hemoglobin 30.8 pg (27.0-31.2); Mean Platelet Volume 9.7 fl (7.4-10.4); Monocytes # 0.4 K/mm3 (0.1-1.0); Monocytes % 4.9 % (1.7-9.3); Neutrophils # 5.6 K/mm3 (1.8-7.8); Neutrophils % 66.7 % (37.0-80.0); Platelet Count 356 K/mm3 (142-424); Red Blood Count 5.28 M/mm3 (4.60-6.20); Red Cell Distribution Width 14.3 % (11.5-17.5); White Blood Count 8.4 K/mm3 (4.8-10.8)
[2022-04-22 14:35] LABS: Alanine Aminotransferase 78 U/L (12-78); Albumin Level 4.7 g/dl (3.5-5.0); Albumin/Globulin Ratio 1.5 (1.1-1.8); Alkaline Phosphatase 115 U/L (38-126); Anion Gap 15.3 mEq/L (5-15); Aspartate Amino Transferase 57 U/L (17-59); Blood Urea Nitrogen 15 mg/dl (9-20); Carbon Dioxide 27 mmol/L (22.0-30.0); Chloride 101 mmol/L (98-107); Chol/HDL Ratio 11.2 (1-3.5); Cholesterol 269 mg/dl (140-200); Estimated Glomerular Filt Rate 93 ml/min (>60); GFR (African American) 112 ML/MIN (>60); Globulin 3.2 g/dL (1.3-3.2); Glucose 102 mg/dl (74-100); HDL Cholesterol 24 mg/dl (40-60); Potassium 4.3 mmoL/L (3.5-5.1); Sodium 139 mmol/L (136-145); Total Protein,Serum 7.9 g/dl (6.3-8.2)
[2022-04-22 14:42] LABS: Triglycerides 1072 mg/dl (30-150)
[2022-04-22 14:46] LABS: Direct LDL Cholesterol 64.44 mg/dL (100-129)
[2022-04-22 15:05] LABS: Thyroid Stimulating Hormone 1.56 uIU/mL (0.465-4.68)
[2022-04-22 15:25] LABS: Vitamin B12 580 pg/mL (239-931)
[2022-04-22 16:05] LABS: 25-OH Vitamin D, Total < 12.8 ng/mL (30-100)
[2022-04-24 14:46] LABS: Testosterone,Total 162 ng/dL (264-916)
== END ==
PROVIDERS: PCP Internal Medicine Adolescent Medicine; Visit Provider Nurse Practitioner Family
DX: Z00.00 Encounter for general adult medical examination without abnormal findings (principal); R53.81 Other malaise; R63.5 Abnormal weight gain; E55.9 Vitamin D deficiency, unspecified
CPT/HCPCS: 36415; 80053; 80061; 82306; 82607; 83036; 84403; 84443; 85025

== ENCOUNTER → 2022-04-29 14:47 | Outpatient (CLI) | payer BC, SELFPAY | PROVIDERS: PCP Internal Medicine Adolescent Medicine; Visit Provider Nurse Practitioner Family | DX: Z71.3 Dietary counseling and surveillance (principal); R73.09 Other abnormal glucose; E55.9 Vitamin D deficiency, unspecified; R63.5 Abnormal weight gain; Z68.38 Body mass index [BMI] 38.0-38.9, adult; G47.30 Sleep apnea, unspecified; R06.00 Dyspnea, unspecified | CPT/HCPCS: 97802; G0399 ==

== ENCOUNTER 2022-05-27 05:36 | Emergency (ER) | payer BC, SELFPAY ==
[2022-05-27 05:38] VITALS: BP 142/100; PULSE 96; RESP 118; TEMP 37.1; O2SAT 96; BMI 39.2
[2022-05-27 06:02] VITALS: BMI 39.2
--- NOTE | 2022-05-27 06:03 | XR_ITS ---
PROCEDURE INFORMATION: Exam: XR Left Hand Exam date and time: 05/27/2022 5:56 AM Age: 41 years old Clinical indication: Injury or trauma; Other: Dog bite; Puncture; Left; Ring finger; Additional info: Dog bite to finger knuckles TECHNIQUE: Imaging protocol: Radiologic exam of the Left hand. Views: 3 or more views. COMPARISON: No relevant prior studies available. FINDINGS: Bones/joints: No acute fracture or dislocation. Cortical density within normal range. Soft tissues: Dorsal hand soft tissue swelling likely corresponds to area of dog bite. No subcutaneous air. IMPRESSION: Soft tissue swelling.
[2022-05-27 06:35] VITALS: BP 150/98; PULSE 78; RESP 19; TEMP 36.8; O2SAT 98
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
== END 2022-05-27 06:53 | disposition home or self-care (01) ==
PROVIDERS: Emergency Provider Emergency Medicine; PCP Nurse Practitioner Family
DX: S61.452A Open bite of left hand, initial encounter (principal); W54.0XXA Bitten by dog, initial encounter
CPT/HCPCS: 73130; 99283; 99284

== ENCOUNTER 2022-06-11 17:00 | Outpatient (RCR) | payer BC, SELFPAY ==
--- NOTE | 2022-02-02 09:41 | HMH.PTOPEV ---
PT Outpatient Evaluation Rehab PT Outpatient Evaluation Start: 02/02/22 08:18 Freq: Status: Active Protocol: Document 02/02/22 08:18 ALEXYS (Rec: 02/02/22 09:41 ALEXYS [id number]) E-signed By Yogesh Covarrubias, PT Outpatient Therapy Subjective History Subjective History Pt presents s/p left knee sx.- partial medial meniscectomy, medial plica resection, chondroplasty on 01/15/22. Pt reports post-op left knee swelling, stiffness, pain, and weakness. Pt reports initial injury to left occurred on 10/12, knee buckled going down steps at home. Pt reports 'I' ll have to be able to stand and walk at [facility] for 12 hours when I got back.' Chief Complaint Pain,Stiff,Swelling,Weakness Symptom Type Ache,Sharp,Dull Symptoms Relieved By Rest/Positioning,Ice Symptoms Aggravated By Standing,Physical Activity, Walking Prior Functional Limitations Standing,Walking,Stairs Current Functional Limitations Standing,Walking,Stairs Symptom Description Constant but Variable Level of pain today (0-10) 2 Pain scale - at its best (0-10) 1 Pain scale - at its worst (0-10) 8 Hip/Knee Eval Gait Observation General Gait Pattern Observation Antalgic Gait,Wide Based Gait, Decrease Weight Bear (L) Assistive Device Assistive Devices None / NA Palpation Tenderness left Knee Palpation Finding Tenderness Knee Palpation Overall Comment 3/4 medial jt line, popiteal space, 1-2/4 lateral jt line MMT Hip Flexion Strength Grade 4- Good- Hip Abduction Strength Grade 4- Good- Hip Adduction Strength Grade 3+ Fair+ Hip Extension Strength Grade 4- Good- Hip External Rotation Strength Grade 4- Good- Hip Internal Rotation Strength Grade 4- Good- Knee Extension Strength Grade 4- Good- Knee Flexion Strength Grade 3+ Fair+ ROM Knee Flexion Active Range of Motion ( 0-105 degrees) Knee ROM Limitations Soft Tissue Tightness,Pain Effusion joint effusion knee exam standard left Mid - Patellar Circumerential Measure ( 41.5 cm) Outpatient Therapy Assessment Impairments Problems/Impairmments Palpation Tenderness,Impaired Range of Motion,Impaired Strength,Impaired Gait Pattern ,Impaired Walking,Impaired
--- NOTE | 2022-03-09 08:54 | HMH.RHREAS ---
Rehab Reassessment Rehab OP Re-assessment Start: 03/09/22 08:38 Freq: Status: Active Protocol: Document 03/09/22 08:38 ALEXYS (Rec: 03/09/22 08:54 ALEXYS [id number]) E-signed By Yogesh Covarrubias, PT Rehab Re-assessment Subjective Subjective Pt reports increased left knee soreness d/t 'taking the grandkids out [id number] last night. I've still got pain with pushing through that knee, and it still acts like it might buckle back from time to time.' Pt reports 5/10 left knee pain on vAS, and feels 50% better overall since I eval Objective Objective Notes AROM: LEFT KNEE FLX 0-110, PROM 0-120 MMT: LEFT KNEE FLX 4-/5 W/PAIN , L KNEE EXT 4+/5, L HIP FLX 4 +/5, L HIP ABD 4-4+/5, L HIP ADD 4+/5, L HIP EXT 4/5 TTP: LEFT KNEE MEDIAL JT LINE 2-3/4, LEFT KNEE LATERAL JT LINE 1-2/4 EDEMA:LEFT KNEE MID PAT. CIRCUM: 43CM GAIT: ANTALGIC LLE ON LEVEL TERRAIN Assessment Progress Assessment Slower Than Expected Assessment Notes IMPROVED STRENGTH AND ROM, LIMITED IMPROVEMENT IN TTP, SWELLING, AND GAIT Patient goals met STG'S 09/16 Goals Not Met STG'S 10/17, LTG'S 03/19 Plan Plan Pt to continue w/skilled P.T. to make further improvements in ROM, STRENGTH, AND TTP to allow for optimal function Frequency of Therapy 2-3x/wk Duration of therapy 6-8wks Time and Billing Re-Eval Time 12 Re-Eval Billing Units 1 PHYSICIAN CERTIFICATION: I certify the specified therapy services for Chuckie Silverman are required, authorized, and reviewed every 30 days.
--- NOTE | 2022-04-07 09:35 | HMH.RHREAS ---
Rehab Reassessment Rehab OP Re-assessment Start: 03/09/22 08:38 Freq: Status: Active Protocol: Document 04/07/22 09:09 ALEXYS (Rec: 04/07/22 09:35 ALEXYS [id number]) E-signed By Yogesh Covarrubias, PT Rehab Re-assessment Subjective Subjective Pt reports medial aspect left knee pain this am at 3/10 on VAS, and feels 60-70% better overall since I eval Objective Objective Notes AROM: LEFT KNEE FLX 0-130, PROM 0-131 MMT: LEFT KNEE FLX 4-4+/5, L KNEE EXT 4+/5, L HIP FLX 4+/5, L HIP ABD 4-4+/5, L HIP ADD 4 - /5 W/PAIN MEDIAL ASPECT LEFT KNEE, L HIP EXT 4/5 TTP: LEFT KNEE MEDIAL JT LINE 1-2/4, LEFT KNEE LATERAL JT LINE 1-2/4 EDEMA:LEFT KNEE MID PAT. CIRCUM: 42CM GAIT: WFL ON LEVEL TERRAIN Assessment Progress Assessment Progressing as Expected Assessment Notes improved strentgh, TTP, edema, and gait Patient goals met STG'S 02/16, LTG'S 09/16 Goals Not Met STG'S 05/19, LTG'S 10/17 Plan Plan Pt to continue w/skilled P.T. to make further improvements in ROM, STRENGTH, GAIT, AND TTP to allow for optimal function Frequency of Therapy 2-3X/WK Duration of therapy 4-6WKS Time and Billing Re-Eval Time 12 Re-Eval Billing Units 1 PHYSICIAN CERTIFICATION: I certify the specified therapy services for Chuckie Silverman are required, authorized, and reviewed every 30 days.
--- NOTE | 2022-05-17 08:49 | HMH.RHREAS ---
Rehab Reassessment Rehab OP Re-assessment Start: 03/09/22 08:38 Freq: Status: Active Protocol: Document 05/17/22 08:34 ALEXYS (Rec: 05/17/22 08:48 ALEXYS [id number]) E-signed By Yogesh Covarrubias, PT Rehab Re-assessment Subjective Subjective Pt reports 'very little pain at this point' in the left knee, and feels 90-95% better overall since I eval Objective Objective Notes AROM: LEFT KNEE FLX 0-135, PROM 0-135 MMT: LEFT KNEE FLX 5/5, L KNEE EXT 5/5, L HIP FLX 5/5, L HIP ABD 4+/5, L HIP ADD 4+/5 W/ PAIN MEDIAL ASPECT LEFT KNEE, L HIP EXT 4+-5/5 TTP: LEFT KNEE MEDIAL JT LINE 0/4, LEFT KNEE LATERAL JT LINE 0/4 EDEMA:LEFT KNEE MID PAT. CIRCUM: 41.5CM GAIT: WFL ON LEVEL TERRAIN and UNLEVEL TERRAIN Assessment Progress Assessment Progressing as Expected Assessment Notes improved strength, TTP, edema, and gait Patient goals met STG'S 03/19, LTG'S 01/17 Goals Not Met LTG'S 06/19 Plan Plan Pt to continue w/skilled P.T. to make further improvements in ROM, STRENGTH, GAIT, AND TTP to allow for optimal function Frequency of Therapy 1-2X/WK Duration of therapy 2-4WKS Time and Billing Re-Eval Time 12 Re-Eval Billing Units 1 PHYSICIAN CERTIFICATION: I certify the specified therapy services for Chuckie Silverman are required, authorized, and reviewed every 30 days.
== END 2022-06-11 17:05 | disposition home or self-care (01) ==
LOC: PT 17:00
PROVIDERS: PCP Internal Medicine Adolescent Medicine; Visit Provider Orthopaedic Surgery
DX: M25.562 Pain in left knee (principal); S83.242D Other tear of medial meniscus, current injury, left knee, subsequent encounter
CPT/HCPCS: 97010; 97014; 97016; 97110; 97163; 97164; 97530; G0283

== ENCOUNTER → 2022-06-21 09:31 | Outpatient (CLI) | payer BC, SELFPAY ==
[2022-06-21 11:56] LABS: Ferritin 90.3 ng/ml (17.9-464)
== END ==
PROVIDERS: PCP Nurse Practitioner Family; Visit Provider Nurse Practitioner Family
DX: E83.10 Disorder of iron metabolism, unspecified (principal); G25.81 Restless legs syndrome
CPT/HCPCS: 36415; 82728

== ENCOUNTER → 2022-10-07 08:08 | Outpatient (POV) | payer BC, SELFPAY | PROVIDERS: Visit Provider Specialist/Technologist | DX: Z00.00 Encounter for general adult medical examination without abnormal findings (principal) ==

== ENCOUNTER → 2022-10-15 14:02 | Outpatient (POV) | payer BC, SELFPAY | PROVIDERS: Visit Provider Specialist/Technologist | DX: Z00.00 Encounter for general adult medical examination without abnormal findings (principal) ==

== ENCOUNTER → 2022-11-15 10:21 | Outpatient (CLI) | payer BC, SELFPAY ==
[2022-11-15 11:15] LABS: Basophils % 0.6 % (0.1-2.0); Eosinophils # 0.1 K/mm3 (0.0-0.4); Eosinophils % 1.3 % (0.1-12.0); Hematocrit 52.7 % (42.0-52.0); Lymphocytes # 1.5 K/mm3 (0.7-4.5); Lymphocytes % 21.9 % (10-50); Mean Corpuscular HGB Conc 32.3 g/dL (31.8-35.4); Mean Corpuscular Hemoglobin 29.7 pg (27.0-31.2); Mean Corpuscular Volume 91.9 fl (80-94); Mean Platelet Volume 8.8 fl (7.4-10.4); Monocytes # 0.3 K/mm3 (0.1-1.0); Monocytes % 4.1 % (1.7-9.3); Neutrophils # 4.9 K/mm3 (1.8-7.8); Neutrophils % 72.1 % (37.0-80.0); Platelet Count 267 K/mm3 (142-424); Red Blood Count 5.74 M/mm3 (4.60-6.20); Red Cell Distribution Width 14.1 % (11.5-17.5); White Blood Count 6.8 K/mm3 (4.8-10.8)
[2022-11-15 12:18] LABS: Alanine Aminotransferase 64 U/L (12-78); Albumin Level 4.6 g/dl (3.5-5.0); Albumin/Globulin Ratio 1.5 (1.1-1.8); Alkaline Phosphatase 88 U/L (38-126); Anion Gap 15.6 mEq/L (5-15); Aspartate Amino Transferase 50 U/L (17-59); Bilirubin,Total 0.9 mg/dl (0.2-1.3); Blood Urea Nitrogen 14 mg/dl (9-20); Calcium 9.6 mg/dl (8.4-10.2); Carbon Dioxide 26 mmol/L (22.0-30.0); Chloride 105 mmol/L (98-107); Chol/HDL Ratio 4.8 (1-3.5); Cholesterol 163 mg/dl (140-200); Estimated Glomerular Filt Rate 106 ml/min (>60); GFR (African American) 128 ML/MIN (>60); Globulin 3.1 g/dL (1.3-3.2); Glucose 97 mg/dl (74-100); HDL Cholesterol 34 mg/dl (40-60); Potassium 4.6 mmoL/L (3.5-5.1); Sodium 142 mmol/L (136-145); Total Protein,Serum 7.7 g/dl (6.3-8.2); Triglycerides 239 mg/dl (30-150); VLDL Cholesterol 48 mg/dL (0-40)
[2022-11-15 13:08] LABS: Vitamin B12 477 pg/mL (239-931)
[2022-11-15 18:12] LABS: Hemoglobin A1C 5.6 % (4.0-6.0)
[2022-11-15 19:22] LABS: Direct LDL Cholesterol 89.95 mg/dL (100-129)
[2022-11-16 12:46] LABS: Testosterone,Total 383 ng/dL (264-916)
== END ==
PROVIDERS: Family Medicine; PCP Internal Medicine Adolescent Medicine; Visit Provider Nurse Practitioner Family
DX: R42 Dizziness and giddiness (principal); E11.9 Type 2 diabetes mellitus without complications; E55.9 Vitamin D deficiency, unspecified; E29.1 Testicular hypofunction; Z79.84 Long term (current) use of oral hypoglycemic drugs
CPT/HCPCS: 36415; 80053; 80061; 82306; 82607; 82652; 83036; 84403; 85025

== ENCOUNTER → 2023-03-23 09:47 | Outpatient (CLI) | payer BC, SELFPAY ==
[2023-03-23 10:17] LABS: Basophils % 0.5 % (0.1-2.0); Eosinophils # 0.1 K/mm3 (0.0-0.4); Eosinophils % 1.2 % (0.1-12.0); Hemoglobin 16.4 g/dL (14.1-18.0); Lymphocytes # 1.4 K/mm3 (0.7-4.5); Lymphocytes % 24.9 % (10-50); Mean Corpuscular HGB Conc 34.1 g/dL (31.8-35.4); Mean Corpuscular Hemoglobin 31.5 pg (27.0-31.2); Mean Corpuscular Volume 92.5 fl (80-94); Mean Platelet Volume 8.7 fl (7.4-10.4); Monocytes # 0.3 K/mm3 (0.1-1.0); Monocytes % 4.4 % (1.7-9.3); Neutrophils # 3.9 K/mm3 (1.8-7.8); Platelet Count 205 K/mm3 (142-424); Red Blood Count 5.19 M/mm3 (4.60-6.20); Red Cell Distribution Width 13.5 % (11.5-17.5); White Blood Count 5.7 K/mm3 (4.8-10.8)
[2023-03-23 10:51] LABS: Creatinine,Urine Random 145 mg/dL (Not Estab.)
[2023-03-23 10:53] LABS: Alanine Aminotransferase 32 U/L (12-78); Albumin Level 4.2 g/dl (3.5-5.0); Albumin/Globulin Ratio 1.6 (1.1-1.8); Alkaline Phosphatase 65 U/L (38-126); Aspartate Amino Transferase 32 U/L (17-59); Blood Urea Nitrogen 19 mg/dl (9-20); Calcium 9.4 mg/dl (8.4-10.2); Carbon Dioxide 29 mmol/L (22.0-30.0); Chloride 101 mmol/L (98-107); Cholesterol 149 mg/dl (140-200); Estimated Glomerular Filt Rate 92 ml/min (>60); GFR (African American) 111 ML/MIN (>60); Globulin 2.7 g/dL (1.3-3.2); Glucose 89 mg/dl (74-100); HDL Cholesterol 37 mg/dl (40-60); Sodium 138 mmol/L (136-145); Total Protein,Serum 6.9 g/dl (6.3-8.2); Triglycerides 101 mg/dl (30-150); VLDL Cholesterol 20 mg/dL (0-40)
[2023-03-23 11:08] LABS: 25-OH Vitamin D, Total 58.5 ng/mL (30-100)
[2023-03-23 11:11] LABS: Direct LDL Cholesterol 92.69 mg/dL (100-129)
[2023-03-24 09:30] LABS: Testosterone,Total 362 ng/dL (264-916)
== END ==
PROVIDERS: PCP Internal Medicine Adolescent Medicine; Visit Provider Nurse Practitioner Family
DX: I10 Essential (primary) hypertension (principal); E29.1 Testicular hypofunction; E55.9 Vitamin D deficiency, unspecified; E11.9 Type 2 diabetes mellitus without complications; Z68.37 Body mass index [BMI] 37.0-37.9, adult; Z79.84 Long term (current) use of oral hypoglycemic drugs; Z87.891 Personal history of nicotine dependence
CPT/HCPCS: 36415; 80053; 80061; 82043; 82306; 82570; 83036; 84403; 85025

== ENCOUNTER 2023-10-26 10:29 | Outpatient (CLI) | payer BC, SELFPAY ==
--- NOTE | 2023-10-26 10:34 | XR_ITS ---
FINAL REPORT CLINICAL HISTORY: lt knee pain COMPARISON: 10/11/2021 FINDINGS: There is no acute fracture or dislocation. Mild tricompartmental degenerative change. There is no soft tissue abnormality. IMPRESSION: No acute process. Reviewed, Interpreted and Dictated by Krystle Ashraf MD Transcribed by Qi Bueno Authenticated and [facility]
== END 2023-10-26 23:59 | disposition home or self-care (01) ==
LOC: RAD 10:30
PROVIDERS: PCP Nurse Practitioner Family; Visit Provider Physician Assistant
DX: M25.562 Pain in left knee (principal)
CPT/HCPCS: 73562

== ENCOUNTER 2024-01-05 16:00 | Outpatient (RCR) | payer BC, SELFPAY ==
--- NOTE | 2023-10-28 17:00 | HMH.PTOPEV ---
PT Outpatient Evaluation Rehab PT Outpatient Evaluation Start: 10/28/23 16:23 Freq: Status: Active Protocol: Document 10/28/23 16:23 MILANA (Rec: 10/28/23 17:00 MILANA [id number]) E-signed By Mina Earl, PT Outpatient Therapy Subjective History Subjective History Patient is a 43 year old male presenting to outpatient PT with reports of L knee pain. L medial meniscectomy approx 2 years ago. Patient complains of locking. No other comorbidities to report. Chief Complaint Pain,Stiff,Catches/Locks,Gives out/Unstable,Weakness Symptom Type Throb,Shooting Symptoms Relieved By Rest/Positioning,Prescription Meds Symptoms Aggravated By Standing,Physical Activity, Walking Prior Functional Limitations None Current Functional Limitations Housework,Standing,Squatting, Recreation Activity,Walking, Stairs Symptom Description Constant but Variable Level of pain today (0-10) 4 Pain scale - at its best (0-10) 3 Pain scale - at its worst (0-10) 8 Hip/Knee Eval Palpation Tenderness left Knee Palpation Finding Tenderness Knee Palpation Overall Comment MJL/patellar tendon/distal ITB 2/3 MMT Hip Flexion Strength Grade 4 Good Hip Abduction Strength Grade 4- Good- Hip Adduction Strength Grade 3+ Fair+ Hip Extension Strength Grade 3+ Fair+ Hip External Rotation Strength Grade 5 Normal Hip Internal Rotation Strength Grade 5 Normal Knee Extension Strength Grade 4 Good Knee Flexion Strength Grade 5 Normal ROM Hip ROM Reason Not Measured Within Functional Limits Knee Extension Active Range of Motion ( -3 degrees) Knee Flexion Active Range of Motion ( 124 degrees) Special Tests Knee Anterior Drawer Test Negative Left,Negative Right Knee Anterior Satinder Test Negative Left,Negative Right Knee Valgus Stress Test Negative Left,Negative Right Knee Varus Stress Test Negative Left,Negative Right Knee Jacek Test Positive Left Lower Extremity Functional Index Activities Today, do you or would you have any difficulty at all with: a.Any of your usual work, housework or Moderate difficulty school activities b. Your usual hobbies, recreational or Quite a bit of difficulty sporting activities c. Getting into or out of the bath No difficulty d. Walking between rooms Moderate difficulty e. Putting on your shoes or socks No difficulty f. Squatting Extreme difficulty or unable to perform activity g. Lifting an object, like a bag of No difficulty groceries from the floor h. Performing light activities around A little bit of difficulty your home i. Performing heavy activities around A little bit of difficulty your home j. Getting into or out of a car Quite a bit of difficulty k. Walking 2 blocks Moderate difficulty l. Walking a mile Moderate difficulty m. Going up or down 10 stairs (about 1 Moderate difficulty flight of stairs) n. Standing for 1 hour Quite a bit of difficulty o. Sitting for 1 hour Extreme difficulty or unable to perform activity p. Running on even ground Quite a bit of difficulty q. Running on uneven ground Extreme difficulty or unable to perform activity r. Making sharp turns while running fast Extreme difficulty or unable to perform activity s. Hopping Moderate difficulty t. Rolling over in bed No difficulty LEFI Score Lower Extremity Functional Index Score 38 Outpatient Therapy Assessment Impairments Problems/Impairmments Palpation Tenderness,Impaired Range of Motion,Impaired Strength,Impaired Gait Pattern ,Impaired Walking,Impaired Standing,Impaired Household Care,Impaired Stair Climbing, Impaired Incline Stepping, Impaired Stepping on Uneven Surface,Impaired Squatting, Impaired Recreational Activities,Impaired Running, Impaired Jumping,Impaired Work Activities,Subjective C/O Pain Prognosis Rehab Potential Good Short Term Goals Number of Weeks 2 Decrease Subjective C/O Pain Yes: 5/10 at worst Patient to be Ind w/ HEP Yes Custodial Goals Number of Weeks 4-6 Decreased Palpation Tenderness Yes: 1/4 Increase Range of Motion Yes: 0-130 Increase Strength Yes: 5/5 Increase Ability to Walk Yes: 1 hr without difficulty Increase Ability to Stand Yes: Improve Tolerance to Work Activities Yes Improve LEFI Score Yes: >60 Decrease Subjective C/O Pain Yes: 2/10 at worst Outpatient Therapy Plan of Care Treatment Plan May Include Therapeutic Exercise Including Home Yes Exercise Program Manual Therapy Techniques Yes Neuromuscular Re-education Yes Therapeutic Activities to Return to Yes Previous Functional/Work Level Gait Training Yes ADL/Self Care Education Yes Dry Needling Yes Thermal Modalities Yes Electrical Stimulation Yes Ultrasound/Phonophoresis Yes Iontophoresis Yes Orthotics/Bracing/Splinting Yes Vasopneumatic Compression Pump Yes Massage Yes Manual Lymphatic Drainage Yes Eval/Re-Eval Yes Aquatic Therapy Yes Frequency Times per week 2 Duration Number of Weeks 4-6 Addendums This patient is a candidate for social No or vocational rehab? Patient/Guardian verbally acknowledges Yes understanding of treatment program and consents to further treatment? Patient/Guardian verbally acknowledges Yes understanding of diagnosis, prognosis and goals for treatment? Eval Complexity PT Charges 87838 - Moderate Complexity Shoulder/Elbow Eval Shoulder Objective Measurements Elbow Objective Measurements PHYSICIAN CERTIFICATION: I certify the specified therapy services for Chuckie Naga Silverman are required, authorized, and reviewed every 30 days.
--- NOTE | 2023-11-25 15:51 | HMH.RHREAS ---
Rehab Reassessment Rehab OP Re-assessment Start: 10/28/23 16:23 Freq: Status: Active Protocol: Document 11/25/23 15:42 PHORNE (Rec: 11/25/23 15:51 PHORNE [id number]) E-signed By Helio Nascimento, PT Lower Extremity Functional Index Activities Today, do you or would you have any difficulty at all with: a.Any of your usual work, housework or A little bit of difficulty school activities b. Your usual hobbies, recreational or Moderate difficulty sporting activities c. Getting into or out of the bath No difficulty d. Walking between rooms No difficulty e. Putting on your shoes or socks A little bit of difficulty f. Squatting Extreme difficulty or unable to perform activity g. Lifting an object, like a bag of Moderate difficulty groceries from the floor h. Performing light activities around A little bit of difficulty your home i. Performing heavy activities around Moderate difficulty your home j. Getting into or out of a car No difficulty k. Walking 2 blocks A little bit of difficulty l. Walking a mile Moderate difficulty m. Going up or down 10 stairs (about 1 A little bit of difficulty flight of stairs) n. Standing for 1 hour Moderate difficulty o. Sitting for 1 hour A little bit of difficulty p. Running on even ground Moderate difficulty q. Running on uneven ground Moderate difficulty r. Making sharp turns while running fast Moderate difficulty s. Hopping Quite a bit of difficulty t. Rolling over in bed A little bit of difficulty LEFI Score Lower Extremity Functional Index Score 50 Rehab Re-assessment Subjective Subjective Pt reports feeling 75-80% of normal with his L knee at this time. He continues to have pain with certain activities, 4/10 at worst in the L knee. He is concerned with returning to work next week and with being able to squat during weight lifting. Objective Objective Notes MMT L LE: HIP FLEX 4+/5, HIP ABD 4+/5, HIP ADD 4+/5, HIP EXT 4/5, KNEE FLEX 4+/5, KNEE EXT 5/5 TTP: 0/4 L KNEE AROM: L KNEE WNL FLEX/EXT LEFS: 50 this date vs 38 on IE . Assessment Progress Assessment Progressing as Expected Assessment Notes Pt has improved L knee AROM and strength considerably. However, he continues to need further strengthening and pain control to return to prior level of function. Skilled therapy services remain indicated to return pt to previous level of all ADLs. Patient goals met ST/2 LT/8 Plan Plan Continue per initial POC Frequency of Therapy 2 x/wk Duration of therapy 4 wks Time and Billing Re-Eval Time 11 Re-Eval Billing Units 1 PHYSICIAN CERTIFICATION: I certify the specified therapy services for Chuckie Silverman are required, authorized, and reviewed every 30 days.
== END 2024-01-05 16:05 | disposition home or self-care (01) ==
LOC: PT 16:00
PROVIDERS: Visit Provider Nurse Practitioner Family
DX: M25.562 Pain in left knee (principal)
CPT/HCPCS: 97035; 97110; 97163; 97164

== ENCOUNTER 2025-01-04 15:22 | Outpatient (CLI) | payer BC, SELFPAY ==
--- OUTSIDE RECORDS SUMMARY | 2025-01-04 15:29 | XMS_ITS | Clinical Summary ---
Author Organization [facility] Address [address] [place], [place] [address] Phone [email or web address] Care Team Providers Care Lead Cook Name Role Phone Provider, No Primary Care Provider Unavailabl e Allergies Active Allergy Reactions Criticality Noted Date Comments Rosuvastatin 06/24/2022 Dextromethorphan 06/24/2022 Raised BP to high, nausea Lisinopril 06/24/2022 Medications ibuprofen (ADVIL,MOTRIN) 200 MG tabletIndicatio ns:1-2 tablets q 8 hours. Take 200 mg by mouth every 6 (six) hours if needed for mild pain. Active acetaminophen (TYLENOL) 325 MG tabletIndicatio ns:OTC q 4-6 hours as needed. Take by mouth every 6 (six) hours if needed for mild pain. Active ondansetron (ZOFRAN) 4 MG tablet Take 4 mg by mouth every 8 (eight) hours if needed for nausea or vomiting. Active ergocalciferol (VITAMIN D2) 1.25 MG (96797 UT) capsule TAKE 1 CAPSULE BY MOUTH TWICE A WEEK 2 Active albuterol HFA 108 (90 Base) MCG/ACT inhaler INHALE 2 PUFFS BY MOUTH EVERY 6 HOURS NEEDED FOR WHEEZING OR SHORTNESS OF BREATH 3 Active fluticasone (FLONASE) 50 MCG/ACT nasal spray USE 1 SPRAY(S) IN EACH NOSTRIL ONCE DAILY 2 Active Asmanex HFA 100 MCG/ACT aerosol INHALE 1 PUFF BY MOUTH TWICE DAILY DIRECTED 3 Active AMOXICILLIN PO Take by mouth. Active amoxicillin-cla vulanate (AUGMENTIN) 875-125 MG per tablet TAKE 1 TABLET BY MOUTH EVERY 12 HOURS FOR 10 DAYS 3 Active Synjardy XR 10-1000 MG tablet sustained-relea se 24 hour Take 1 tablet by mouth 1 (one) time each day. 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 04/28/2015 Overview (10/05/2017): Social History Tobacco Use Types Packs/Day Years Used Date Smoking Tobacco: Former Smokeless Tobacco: Never Tobacco Cessation:Counseling Given: Not Answered Intimate Partner Violence Answer Date R ecorded Insults You Not on file 08/19/2020 Threatens You Not on file 08/19/2020 Screams at You Not on file 08/19/2020 Physically Hurt Not on file 08/19/2020 Intimate Partner Violence Score Not on file 08/19/2020 Depression Answer Date Recorded PHQ Total Score 0 02/20/2022 Stress Answer Date Recorded Stress in your Life Not on file 03/12/2024 Dealing with Stress 3 03/12/2024 Sex and Gender Information Value Date Recorded Sex Assigned at Not on file Legal Sex Male 8:30 AM CDT Gender Identity Not on file Sexual Orientation Not on file Last Filed Vital Signs Vital Sign Reading Time Taken Comments Blood Pressure 127/95 06/24/2022 11:51 AM EST Pulse 88 06/24/2022 11:51 AM EST Temperature 36.7 C (98 F) 06/24/2022 11:51 AM EST Respiratory Rate 18 06/24/2022 11:51 AM EST Oxygen Saturation 97% 06/24/2022 11:51 AM EST Inhaled Oxygen Concentration - - Weight 134 kg (296 lb) 06/24/2022 11:51 AM EST Height 185.4 cm (6' 1 ) 06/24/2022 11:51 AM EST Body Mass Index 39.05 06/24/2022 11:51 AM EST Plan of Treatment Health Maintenance Due Date Last Done Comments CT Colonography 1979 Colonoscopy 1979 Colorectal Cancer Screening Combo 1979 DNA Cologuard 1979 Dental Cleaning/Exam 1979 FIT or FOBT Test 1979 HIV Screening 1979 Hepatitis C Screening 1979 Sigmoidoscopy 1979 HPV Immunization (1 - Male 3 -dose series) 1994 Annual Preventive Exam 1997 Hep B Infection Screening - Triple Screen 1997 Hepatitis B Immunization (1 of 3 - 19+ 3-dose series) 1998 Tetanus Diphtheria and Pertu ssis Immunization (1 - Tdap) 1998 Covid-19 Immunization (1 - 2 024-25 season) 2024 Influenza Immunization (#1) 2025 HIB Immunization Aged Out No longer e ligible based on patient's age to complete this topic Hepatitis A Immunization Aged Out No longer eligible based on patient's age to complete this topic Pneumococcal: Ped (0 to 5 Yr s) and At-Risk Member (6 to 64 Yrs) Aged Out No longer e ligible based on patient's age to complete this topic Polio Immunization Aged Out No longer eligible based on patient's age to complete this topic Insurance [address] [place] [address] OPT OUT NO COPAY NB ANTHEM IN [facility] Address: [address] [place], [place] [id number] [place] [address] Care Teams Lead Cook Relationship Specialty Start Date End Date Provider, KELLY Quinteros [id number] PCP - General Radiology Scheduler 05/18/21
--- NOTE | 2025-01-04 15:30 | CA_ITS ---
APPROVED REPORT EXAM: Comprehensive 2D, Doppler, and color-flow Echocardiogram Systems Software Engineer: Nayeli Eric RT(R) Ht: 6 ft 1 in Wt: 240lbs BSA: 2.33 BP: 130/80 mmHg Indications: syncope, migraines Echo Enhancing Agent Indication: Rule out Shunt Agent(s) / Amount(s) Used: Agitated Saline 15 cc 2D Dimensions LVEF (Mauro's) 61.40 % M: 52 - 72 LV Volume 127.10 mL M: 62 - 150 LV Volume Index 54.5 mL/m2 M: 34 - 74 LA Volume 23.40 mL LA Volume Index 10.04 mL/m2 (M/F) 16-34 EF AP4 55.40 % EF AP2 64.2 % EF BP 61.4 % GL Strain -17.9 % M-Mode Dimensions RVDd 2.46 cm (0.9-2.6) LA Diam 3.49 cm (1.9-4.0) LVDd 5.44 cm (3.5-5.7) LVDs 4.04 cm (3.5-5.7) IVSd 0.98 cm (0.6-1.1) PWd 0.72 cm (0.6-1.1) EF (Teich) 50.10% FS 25.70% EDV (Teich) 143.70 mL ESV (Teich) 71.70 mL LV Diastology E Decel Time 167 (160-240 msec) E/A Ratio 1.21 Mitral Valve MV A Velocity 57.0 (40-130 cm/s) E/A Ratio 1.21 Tricuspid Valve TR P. Velocity 183.00 cm/s Left Ventricle The left ventricle is normal size. Left ventricular systolic function is normal. The left ventricular ejection fraction is within the normal range. There is normal left ventricular wall thickness. There is normal LV segmental wall motion. The left ventricular diastolic function is normal. LVEF is 55% Right Ventricle The right ventricle is normal size. The right ventricular systolic function is normal. Atria The left atrium size is normal. The right atrium size is normal. There is no color Doppler evidence of interatrial shunt. Agitated saline administration demonstrates no evidence of interatrial shunt. Aortic Valve The aortic valve opens well. There is no hemodynamically significant aortic valvular stenosis. No aortic regurgitation is present. Mitral Valve The mitral valve is normal in structure. No evidence of mitral valve stenosis. Trace mitral regurgitation is present. Tricuspid Valve The tricuspid valve leaflets are thin and pliable. Trace tricuspid regurgitation. There is insufficient TR jet to estimate RVSP. Pulmonic Valve The pulmonary valve is grossly normal in structure. Trace pulmonic valve regurgitation is present. Great Vessels The aortic root is normal in size. IVC is normal in size and collapses >50% with inspiration. Pericardium There is no pericardial effusion. Other Information Study Quality: Fair Conclusion Normal biventricular systolic function. No significant valvular stenosis or regurgitation. There is no color Doppler evidence of interatrial shunt. Agitated saline administration demonstrates no evidence of interatrial shunt. Electronically signed by : Katrina Barrett MD 01/05/2025 16:30:20
== END 2025-01-04 23:59 | disposition home or self-care (01) ==
LOC: RT 15:27
PROVIDERS: PCP Nurse Practitioner Family; Visit Provider Nurse Practitioner Family
DX: G43.909 Migraine, unspecified, not intractable, without status migrainosus (principal); R55 Syncope and collapse
CPT/HCPCS: 93306